=== PATIENT | female | born 1970 | race Caucasian/White ===

== ENCOUNTER 2019-10-15 14:27 | Emergency (ER) | payer BC ==
[~2019-10-15] VITALS: Ht 170.2 cm; Wt 70.3 kg
[2019-10-15] MEDS ORDERED: MORPHINE SULFATE 5 MG/ML VIAL IV ONE (14:45)
[2019-10-15] MEDS ORDERED: KETOROLAC TROMETHAMINE 60 MG/2 ML VIAL IM ONE (14:45)
[2019-10-15] MEDS ORDERED: MORPHINE SULFATE INJ 4 MG/ML INJ 1ML ONE (14:58)
[2019-10-15] MEDS ORDERED: MORPHINE SULFATE 5 MG/ML VIAL IM ONE (15:00)
[2019-10-15] MEDS ORDERED: MORPHINE SULFATE INJ 4 MG/ML INJ 1ML IV ONE (15:00)
[2019-10-15] MEDS ORDERED: ULTRAM50 MG PO (15:06)
[2019-10-15] MEDS ORDERED: MORPHINE SULFATE INJ 4 MG/ML INJ 1ML IM ONE (15:15)
--- NOTE | 2019-10-15 15:26 | Diagnostic Imaging Report ---
Exam: Left knee 3 views History: Pain Comparison: None. Findings: No acute, displaced fracture or dislocation. Postsurgical or posttraumatic changes of the proximal tibial metaphysis. Mild tricompartmental joint space narrowing and marginal osteophytosis. No definite joint effusion. Soft tissues unremarkable. Impression: No acute osseous abnormality. Mild tricompartmental degenerative arthrosis. Signed by: Dr. Bao Pike M.D. on 10/15/2019 3:22 PM
--- NOTE | 2019-10-15 17:20 | NUR ---
LEFT KNEE IMMOBILIZER PLACED PER MD ORDER. TEACHING DONE.
== END 2019-10-15 16:05 | disposition home or self-care (01) ==
LOC: FSED 14:27
DX: M25.562 Pain in left knee (principal); M17.12 Unilateral primary osteoarthritis, left knee
CPT/HCPCS: 73562; 99284; J2270

== ENCOUNTER 2024-08-31 19:24 | Emergency (ER) | payer BC, OTHER ==
[~2024-08-31] VITALS: Ht 170.2 cm; Wt 87.8 kg
[~2024-08-31 19:24] MED LIST: ULTRAM50 MG PO
[2024-08-31 19:38] VITALS: PULSE 103; RESP 18; TEMP 98.8
[2024-08-31] MEDS: SODIUM CHLORIDE 0.9% 1000ML 1,000 ML IV ONE (20:38)
[2024-08-31] MEDS: KETOROLAC TROMETHAMINE 30 MG/ML VIAL IV STA (20:39)
[2024-08-31] MEDS ORDERED: FLOMAX0.4 MG PO (22:24)
[2024-08-31 22:45] VITALS: BP 162/92; PULSE 100; RESP 18; TEMP 98.8; O2SAT 97
== END 2024-08-31 22:45 | disposition home or self-care (01) ==
LOC: FSED 19:45
DX: R30.0 Dysuria (principal); N13.2 Hydronephrosis with renal and ureteral calculous obstruction; J45.909 Unspecified asthma, uncomplicated; N23 Unspecified renal colic
CPT/HCPCS: 74176; 80053; 81003; 85025; 99283; J1885; J7030